=== PATIENT | female | born 1955 | race Caucasian/White ===

== ENCOUNTER 2018-10-13 10:04 | Emergency (ER) | payer OTHER ==
[~2018-10-13] VITALS: Ht 160 cm; Wt 95.0 kg
[~2018-10-13 10:04] MED LIST: AMOX1TAB64 PO; FOLI-17 PO; LACT1CAP24 PO; LEVO200T5 PO; LISI2.5T PO; MULT1TAB60 PO; THIA100T67 PO
[2018-10-13 10:25] LABS: MEAN CORPUSCULAR HEMOGLOBIN 28.9 pg (27.0-34.8); MEAN CORPUSCULAR HGB CONC 31.8 g/dL (32.4-35.8); MEAN CORPUSCULAR VOLUME 90.9 fL (80-100); PLATELET COUNT 127 x10^3/uL (130-400); RED BLOOD COUNT 4.45 x10^6/uL (3.82-5.3); RED CELL DISTRIBUTION WIDTH 13.1 % (9.6-15.2)
[2018-10-13 10:29] LABS: MD YES
--- NOTE | 2018-10-13 10:30 | NUR ---
PT FELT A LITTLE LIGHTHEADED. WHEN SHE SAT DOWN IN CHAIR, SHE PASSED OUT.
[2018-10-13 10:37] LABS: ALANINE AMINOTRANSFERASE 15 U/L (12-78); ALBUMIN 3.7 g/dL (3.4-5.0); ANION GAP 4 mmol/L (5-15); CALCIUM 8.6 mg/dL (8.5-10.1); CHLORIDE 112 mmol/L (98-107); CREATININE 0.96 mg/dL (0.55-1.02)
[2018-10-13 10:42] LABS: ALKALINE PHOSPHATASE 97 U/L (45-117); BILIRUBIN,TOTAL 0.6 mg/dL (0.2-1.0); TOTAL PROTEIN 6.1 g/dL (6.4-8.2); TROPONIN I < 0.015 ng/mL (0.000-0.045)
[2018-10-13] MEDS ORDERED: omeprazole PO (10:55)
[2018-10-13] MEDS ORDERED: OMEPRAZO (10:55)
[2018-10-13] MEDS ORDERED: LEVO175T5 PO (10:55)
[2018-10-13] MEDS ORDERED: lisinopril-hctz PO (10:55)
[2018-10-13 11:00] VITALS: BP 131/69
[2018-10-13 11:22] LABS: EOS#(MANUAL) 0.46 x10^3/uL (0.0-0.4); EOS% (MANUAL) 1 % (1-7); LYMPH#(MANUAL) 37.31 x10^3/uL (1-3.4); LYMPHS% (MANUAL) 82 % (22-44); MONOS#(MANUAL) 0.91 x10^3/uL (0.3-2.7); MONOS% (MANUAL) 2 % (2-9); SEG#(MANUAL) 6.83 x10^3/uL (1.8-6.8); SEGS% (MANUAL) 15 % (42-75)
[2018-10-13 11:24] LABS: <RBC MORPHOLOGY> NORMAL
[2018-10-13 11:25] LABS: <PLATELET ESTIMATE> ADEQUATE; <PLT MORPHOLOGY> NORMAL PLT MORPH; SMUDGE CELLS 1+
[2018-10-13] MEDS ORDERED: SODIUM CHLORIDE FLUSH 10ML SYR IVF ONE (11:30)
--- NOTE | 2018-10-13 12:29 | NUR ---
PT UOB AND AMBULATED DOWN [place] WITHOUT ASSISTANCE. DENIES DIZZINESS. PT GIVEN SUGGESTION TO PT THAT SHE GET UP SLOWLY AND TO DRINK INCREASED AMOUNT OF WATER WHEN SHE GETS HOME.
== END 2018-10-13 12:52 | disposition home or self-care (01) ==
LOC: ED 12:51
DX: C91.10 Chronic lymphocytic leukemia of B-cell type not having achieved remission (principal); R55 Syncope and collapse; K21.9 Gastro-esophageal reflux disease without esophagitis; I10 Essential (primary) hypertension; E03.9 Hypothyroidism, unspecified; Z90.710 Acquired absence of both cervix and uterus
CPT/HCPCS: 36415; 71045; 80053; 83735; 83880; 84443; 84484; 85025; 93005; 99284